=== PATIENT | female | born 1945 | race Caucasian/White ===

== ENCOUNTER 2023-01-10 08:08 | Emergency (ER) | payer MEDICARE ==
[~2023-01-10] VITALS: Ht 170.2 cm; Wt 74.5 kg
[2023-01-10 08:40] LABS: ALANINE AMINOTRANSFERASE 18 U/L (12-78); ALBUMIN 3.5 G/DL (3.4-5.0); ALBUMIN/GLOBULIN RATIO 1.2 (1.1-1.5); ANION GAP 9 (8-16); ASPARTATE AMINO TRANSFERASE 30 U/L (10-37); BILIRUBIN,TOTAL 0.4 MG/DL (0.1-1.0); BLOOD UREA NITROGEN 9 MG/DL (7-18); BUN/CREATININE RATIO 10.5 (10.0-20.0); CALCIUM 9.2 MG/DL (8.5-10.1); CHLORIDE 108 MMOL/L (99-107); CREATININE 0.86 MG/DL (0.40-0.90); GLUCOSE 95 MG/DL (70-104); POTASSIUM 4.1 MMOL/L (3.5-5.1); SODIUM 144 MMOL/L (135-145); TOTAL CARBON DIOXIDE 27.1 MMOL/L (24-32); TOTAL PROTEIN 6.4 G/DL (6.4-8.2); eGFR 63 ML/MIN
[2023-01-10 08:41] LABS: ALKALINE PHOSPHATASE 110 IU/L (46-116); BASOPHILS % (AUTO) 0.6 % (0-1); EOSINOPHILS # (AUTO) 0.1 X10'3 (0-0.9); EOSINOPHILS % (AUTO) 1.9 % (0-6); HEMATOCRIT 39.5 % (35.0-45.0); HEMOGLOBIN 12.7 g/dl (12.0-16.0); LYMPHOCYTES # (AUTO) 2.3 X10'3 (1.1-4.8); LYMPHOCYTES % (AUTO) 40.2 % (21-51); MEAN CORPUSCULAR HEMOGLOBIN 29.5 PG (27.0-31.0); MEAN CORPUSCULAR HGB CONC 32.3 g/dL (33.0-36.5); MEAN CORPUSCULAR VOLUME 91.5 FL (78-98); MEAN PLATELET VOLUME 7.7 FL (7.4-10.4); MONOCYTES # (AUTO) 0.3 X10'3 (0-0.9); MONOCYTES % (AUTO) 5.2 % (2-12); NEUTROPHILS % (AUTO) 52.1 % (42-75); PLATELET COUNT 308 X10'3 (140-440); RED BLOOD COUNT 4.32 X10'6 (4.20-5.60); RED CELL DISTRIBUTION WIDTH 14.9 % (11.5-14.5); WHITE BLOOD COUNT 5.8 X10'3 (4.5-11.0)
[2023-01-10 10:29] VITALS: BP 146/73
[2023-01-10] MEDS ORDERED: HYDROcodone/acetaminophen 5mg/325mg tablet PO ONE (12:15)
--- NOTE | 2023-01-10 13:33 | NUR ---
PER DR VALENTINE RN MAY CHG NOWATA TO NOWATA.
[2023-01-10] MEDS ORDERED: HYDROcodone/acetaminophen 10/325mg tab PO ONE (13:35)
[2023-01-10] MEDS ORDERED: HYDR-3973 PO (13:50)
== END 2023-01-11 06:57 | disposition home or self-care (01) ==
LOC: ER 08:09
DX: G89.29 Other chronic pain (principal); M54.50 Low back pain, unspecified; J44.9 Chronic obstructive pulmonary disease, unspecified; Z79.1 Long term (current) use of non-steroidal anti-inflammatories (NSAID)
CPT/HCPCS: 36415; 71045; 80053; 83880; 84484; 85025; 93005; 99285

== ENCOUNTER 2023-01-18 12:27 | Emergency (ER) | payer MEDICARE, OTHER ==
[~2023-01-18] VITALS: Ht 167.6 cm; Wt 64.4 kg
[~2023-01-18 12:27] MED LIST: HYDR-3973 PO
[2023-01-18 12:37] VITALS: TEMP 97.7
[2023-01-18 12:43] LABS: BASOPHILS # (AUTO) 0.1 X10'3 (0-0.2); BASOPHILS % (AUTO) 0.9 % (0-1); EOSINOPHILS # (AUTO) 0.1 X10'3 (0-0.9); EOSINOPHILS % (AUTO) 1.2 % (0-6); HEMOGLOBIN 13.1 g/dl (12.0-16.0); LYMPHOCYTES # (AUTO) 2.1 X10'3 (1.1-4.8); MEAN CORPUSCULAR HEMOGLOBIN 29.7 PG (27.0-31.0); MEAN CORPUSCULAR HGB CONC 32.7 g/dL (33.0-36.5); MEAN CORPUSCULAR VOLUME 90.9 FL (78-98); MEAN PLATELET VOLUME 7.7 FL (7.4-10.4); MONOCYTES # (AUTO) 0.3 X10'3 (0-0.9); MONOCYTES % (AUTO) 5.1 % (2-12); NEUTROPHILS # (AUTO) 3.9 X10'3 (1.8-7.7); NEUTROPHILS % (AUTO) 60.8 % (42-75); PLATELET COUNT 296 X10'3 (140-440); RED CELL DISTRIBUTION WIDTH 14.8 % (11.5-14.5); WHITE BLOOD COUNT 6.5 X10'3 (4.5-11.0)
[2023-01-18 13:12] LABS: ALANINE AMINOTRANSFERASE 14 U/L (12-78); ALBUMIN 3.9 G/DL (3.4-5.0); ALBUMIN/GLOBULIN RATIO 1.5 (1.1-1.5); ALKALINE PHOSPHATASE 99 IU/L (46-116); ANION GAP 11 (8-16); ASPARTATE AMINO TRANSFERASE 19 U/L (10-37); BILIRUBIN,TOTAL 0.6 MG/DL (0.1-1.0); BLOOD UREA NITROGEN 12 MG/DL (7-18); BUN/CREATININE RATIO 15.6 (10.0-20.0); CALCIUM 9.3 MG/DL (8.5-10.1); CHLORIDE 108 MMOL/L (99-107); CREATININE 0.77 MG/DL (0.40-0.90); GLUCOSE 100 MG/DL (70-104); POTASSIUM 3.8 MMOL/L (3.5-5.1); SODIUM 143 MMOL/L (135-145); TOTAL PROTEIN 6.5 G/DL (6.4-8.2); eGFR 72 ML/MIN
[2023-01-18] MEDS ORDERED: HYDROcodone/acetaminophen 10/325mg tab PO STA (14:40)
[2023-01-18 14:52] VITALS: BP 147/74; PULSE 68; RESP 20; O2SAT 98
[2023-01-18] MEDS ORDERED: HYDR-3973 PO (15:35)
== END 2023-01-18 15:49 | disposition home or self-care (01) ==
LOC: ER 12:28
DX: M54.50 Low back pain, unspecified (principal); Z76.0 Encounter for issue of repeat prescription; J44.9 Chronic obstructive pulmonary disease, unspecified; Z79.899 Other long term (current) drug therapy
CPT/HCPCS: 36415; 71045; 80053; 83880; 84484; 85025; 93005; 99285

== ENCOUNTER 2023-04-24 15:45 | Emergency (ER) | payer MEDICARE, OTHER ==
[~2023-04-24] VITALS: Ht 170.2 cm; Wt 67.7 kg
[2023-04-24 15:57] VITALS: TEMP 98.3
[2023-04-24 16:22] LABS: BASOPHILS % (AUTO) 0.5 % (0-1); EOSINOPHILS # (AUTO) 0.1 X10'3 (0-0.9); EOSINOPHILS % (AUTO) 0.5 % (0-6); HEMATOCRIT 32.8 % (35.0-45.0); HEMOGLOBIN 10.9 g/dl (12.0-16.0); LYMPHOCYTES # (AUTO) 3.6 X10'3 (1.1-4.8); LYMPHOCYTES % (AUTO) 37.2 % (21-51); MEAN CORPUSCULAR HEMOGLOBIN 30.2 PG (27.0-31.0); MEAN CORPUSCULAR HGB CONC 33.4 g/dL (33.0-36.5); MEAN CORPUSCULAR VOLUME 90.6 FL (78-98); MEAN PLATELET VOLUME 8.1 FL (7.4-10.4); MONOCYTES # (AUTO) 0.4 X10'3 (0-0.9); MONOCYTES % (AUTO) 3.7 % (2-12); NEUTROPHILS # (AUTO) 5.6 X10'3 (1.8-7.7); NEUTROPHILS % (AUTO) 58.1 % (42-75); PLATELET COUNT 289 X10'3 (140-440); RED BLOOD COUNT 3.62 X10'6 (4.20-5.60); RED CELL DISTRIBUTION WIDTH 13.9 % (11.5-14.5); WHITE BLOOD COUNT 9.7 X10'3 (4.5-11.0)
[2023-04-24 16:28] LABS: ALANINE AMINOTRANSFERASE 16 U/L (12-78); ALBUMIN 3.4 G/DL (3.4-5.0); ALKALINE PHOSPHATASE 90 IU/L (46-116); ANION GAP 9 (8-16); ASPARTATE AMINO TRANSFERASE 19 U/L (10-37); BILIRUBIN,TOTAL 0.3 MG/DL (0.1-1.0); BLOOD UREA NITROGEN 26 MG/DL (7-18); BUN/CREATININE RATIO 29.5 (10.0-20.0); CALCIUM 9.5 MG/DL (8.5-10.1); CHLORIDE 106 MMOL/L (99-107); CREATININE 0.88 MG/DL (0.40-0.90); GLUCOSE 93 MG/DL (70-104); POTASSIUM 3.5 MMOL/L (3.5-5.1); SODIUM 142 MMOL/L (135-145); TOTAL CARBON DIOXIDE 26.6 MMOL/L (24-32); TOTAL PROTEIN 6.9 G/DL (6.4-8.2); eCRCL 50 ML/MIN; eGFR 62 ML/MIN
[2023-04-24 16:37] LABS: PRO BRAIN NATRIURETIC PEPTIDE 111 PG/ML (0-450)
[2023-04-24] MEDS ORDERED: morphine 2 MG/ML inj. syringe IV ONE (17:20)
[2023-04-24] MEDS ORDERED: ondansetron 4mg rapidly disintigrating tab PO ONE (17:20)
[2023-04-24] MEDS ORDERED: morphine 10 MG/5 ML UD oral solution PO ONE (18:20)
[2023-04-24] MEDS ORDERED: HYDR-3964 PO (18:35)
[2023-04-24] MEDS ORDERED: HYDROCO (18:35)
[2023-04-24 18:57] VITALS: BP 149/85; PULSE 94; RESP 16; O2SAT 94
== END 2023-04-24 18:59 | disposition home or self-care (01) ==
LOC: ER 15:46
DX: M54.6 Pain in thoracic spine (principal); R06.02 Shortness of breath; W19.XXXA Unspecified fall, initial encounter; Y93.89 Activity, other specified; Y92.89 Other specified places as the place of occurrence of the external cause; Y99.8 Other external cause status
CPT/HCPCS: 36415; 71250; 80053; 83880; 84484; 85025; 93005; 96374; 99285; J2270

== ENCOUNTER 2024-04-19 08:28 | Outpatient (CLI) | payer MEDICARE, OTHER ==
[~2024-04-19 08:28] MED LIST changes: -HYDR-3973 PO; +HYDROCO
== END 2024-04-19 23:59 | disposition home or self-care (01) ==
LOC: US 08:28
PROVIDERS: ATTEND Nurse Practitioner Family
DX: R35.1 Nocturia (principal)
CPT/HCPCS: 76770

== ENCOUNTER 2024-09-16 22:47 | Emergency (ER) | payer MEDICARE, OTHER ==
[~2024-09-16] VITALS: Ht 170.2 cm; Wt 55.0 kg
[2024-09-16 23:37] LABS: BASOPHILS % (AUTO) 0.8 % (0-1); EOSINOPHILS # (AUTO) 0.1 X10'3 (0-0.9); EOSINOPHILS % (AUTO) 2.2 % (0-6); HEMATOCRIT 23.5 % (35.0-45.0); HEMOGLOBIN 7.4 g/dl (12.0-16.0); LYMPHOCYTES % (AUTO) 41.7 % (21-51); MEAN CORPUSCULAR HEMOGLOBIN 26.4 PG (27.0-31.0); MEAN CORPUSCULAR HGB CONC 31.7 g/dL (33.0-36.5); MEAN CORPUSCULAR VOLUME 83.1 FL (78-98); MEAN PLATELET VOLUME 7.6 FL (7.4-10.4); MONOCYTES # (AUTO) 0.3 X10'3 (0-0.9); MONOCYTES % (AUTO) 5.9 % (2-12); NEUTROPHILS # (AUTO) 2.3 X10'3 (1.8-7.7); NEUTROPHILS % (AUTO) 49.4 % (42-75); PLATELET COUNT 221 X10'3 (140-440); RED BLOOD COUNT 2.83 X10'6 (4.20-5.60); RED CELL DISTRIBUTION WIDTH 18.6 % (11.5-14.5); WHITE BLOOD COUNT 4.7 X10'3 (4.5-11.0)
[2024-09-16 23:52] LABS: INR 1.2 INR; PROTHROMBIN TIME 12.2 SECONDS (9.0-12.0)
[2024-09-16 23:53] LABS: APTT 20 SECONDS (22-32)
[2024-09-17 00:15] LABS: ANISOCYTOSIS 1+; POIKILOCYTOSIS 2+
[2024-09-17 00:19] LABS: ALANINE AMINOTRANSFERASE 13 U/L (12-78); ALBUMIN 2.7 G/DL (3.4-5.0); ALBUMIN/GLOBULIN RATIO 1.2 (1.1-1.5); ALKALINE PHOSPHATASE 88 IU/L (46-116); ANION GAP 7 (8-16); ASPARTATE AMINO TRANSFERASE 28 U/L (10-37); BILIRUBIN,TOTAL 0.3 MG/DL (0.1-1.0); BLOOD UREA NITROGEN 16 MG/DL (7-18); BUN/CREATININE RATIO 18.4 (10.0-20.0); CALCIUM 7.8 MG/DL (8.5-10.1); CHLORIDE 109 MMOL/L (99-107); CREATININE 0.87 MG/DL (0.40-0.90); GLUCOSE 84 MG/DL (70-104); PRO BRAIN NATRIURETIC PEPTIDE 764 PG/ML (0-450); SODIUM 144 MMOL/L (135-145); TOTAL CARBON DIOXIDE 28.1 MMOL/L (24-32); eCRCL 44 ML/MIN; eGFR 62 ML/MIN
[2024-09-17 00:26] LABS: ETHANOL < 10 MG/DL (<10)
[2024-09-17 00:27] LABS: POTASSIUM 2.9 MMOL/L (3.5-5.1)
[2024-09-17 00:52] LABS: BILIRUBIN,URINE NEGATIVE (Neg); CLARITY,URINE CLEAR (Clear); COLOR,URINE YELLOW (Yellow); GLUCOSE, URINE NEGATIVE (Neg); KETONES,URINE NEGATIVE (Neg); LEUKOCYTE ESTERASE ,URINE NEGATIVE (Neg); NITRITES, URINE NEGATIVE (Neg); OCCULT BLOOD,URINE NEGATIVE (Neg); PROTEIN,URINE NEGATIVE (Neg)
[2024-09-17 01:08] LABS: UA COLLECTION TYPE CLN CATCH MIDSTREAM
[2024-09-17 01:21] LABS: URINE AMPHETAMINE SCREEN NEGATIVE (Neg); URINE BARBITUATE SCREEN NEGATIVE (Neg); URINE BENZODIAZEPINES SCREEN NEGATIVE (Neg); URINE CANNABINOID SCREEN POSITIVE (Neg); URINE COCAINE SCREEN NEGATIVE (Neg); URINE METHADONE SCREEN NEGATIVE (Neg); URINE OPIATE SCREEN POSITIVE (Neg); URINE PHENCYCLIDINE SCREEN NEGATIVE (Neg)
[2024-09-17] MEDS: POTASSIUM CHLORIDE 20 MEQ/15 ML oral solution PO SCH (01:40)
[2024-09-17] MEDS: HYDROcodone/acetaminophen 10/325mg tab PO ONE (02:04)
[2024-09-17 02:46] VITALS: BP 122/68; PULSE 66; RESP 18; TEMP 98.5; O2SAT 98
== END 2024-09-17 03:01 | disposition home or self-care (01) ==
LOC: ER 22:47
DX: S09.8XXA Other specified injuries of head, initial encounter (principal); G89.11 Acute pain due to trauma; D64.9 Anemia, unspecified; J44.9 Chronic obstructive pulmonary disease, unspecified; I10 Essential (primary) hypertension; G89.29 Other chronic pain; M54.9 Dorsalgia, unspecified; W18.30XA Fall on same level, unspecified, initial encounter; Y93.89 Activity, other specified; Y92.89 Other specified places as the place of occurrence of the external cause; Y99.8 Other external cause status
CPT/HCPCS: 36415; 70450; 80053; 80305; 81003; 83735; 83880; 84484; 85008; 85025; 85610; 85730; 93005; 99284; G0480; 80320

== ENCOUNTER 2025-04-06 10:39 | Inpatient (IN) | payer MEDICARE, OTHER ==
[~2025-04-06] VITALS: Ht 170.2 cm; Wt 53.1 kg
--- NOTE | 2025-04-06 11:04 | ELECTROCARDIOGRAPH REPORT ---
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
--- NOTE | 2025-04-06 11:22 | Physician Documentation ---
History of Present Illness General Chief Complaint: Abdominal Pain Stated Complaint: ABD PAIN Time Seen by MD: 11:21 Primary Medical Doctor: [place] History of Present Illness Initial Comments Patient is a an 80-year-old female presents to the emergency room with abdominal pain and diarrhea. The patient states that she has had abdominal pain for the last two days and decreased appetite over the last two days. Patient states that she developed an episode of diarrhea this morning. The patient states her pain is in the lower abdomen. She denies any fevers or chills. Patient states she has a history of back pain. Patient states she takes for Thornton 03/30/2025 pills a day for her chronic back pain. Patient denies any fevers she advised denies any nausea or vomiting patient's symptoms are moderate and persistent. Patient has had a cholecystectomy and a hysterectomy in the past. Medication Reconciliation Allergies: Coded Allergies: No Known Allergies (Unverified , 04/06/25) Scheduled Albuterol Sulfate Nebs* (Proventil Nebs*), 1 VIAL NEB Q4H, (Reported) Duloxetine HCl (Duloxetine HCl), 1 CAP PO DAILY, (Reported) Ferrous Sulfate* (Ferrous Sulfate*), 1 TAB PO DAILY, (Reported) Olmesartan Medoxomil (Olmesartan Medoxomil), 1 TAB PO DAILY, (Reported) Scheduled PRN Cyclobenzaprine HCl (Cyclobenzaprine HCl), 1 TAB PO HS PRN for pain, (Reported) Hydrocodone Bit/Acetaminophen (Hydrocodon-Acetaminophn 10-325 tablet), 1 TAB PO QID PRN for pain, (Reported) Trazodone HCl (Trazodone HCl), 2 TAB PO HS PRN for sleep, (Reported) Miscellaneous Medications Estradiol (Estradiol), (Reported) [hydroco] Past Medical History Past Medical History: Hypertension, COPD, Anemia, Chronic Pain, Chronic Back Pain Past Surgical History: noncontributory Alcohol Use: None Drug Use: none Lives with: Spouse Lives In: Home Occupation: retired Review of Systems All Other Systems at this time: Reviewed and Negative Physical Exam Physical Exam Vital Signs: Temperature: 97.5, Source: Temporal, Heart Rate: 98, Respiratory Rate: 20, BP: 184/97, Pulse Oximetry: 100, Weight: 53.100 Oxygen Flow Rate: 0 Physical Exam VITALS: Reviewed and as above. GENERAL: Alert, no apparent distress. HEENT: Normocephalic, atraumatic, PERRL, EOMI, dry mucosa, no erythema RESPIRATORY: Lungs clear, normal breath sounds, no respiratory distress. CHEST: No accessory muscle use, no retractions CV: Regular rate, rhythm, no edema, no murmur, No: JVD GI: Soft, lower abdominal tenderness diffuse greater on the right lower quadrant, bowels sounds present, no rebound, guarding, or rigidity BACK: No CVA tenderness, or swelling MUSCULOSKELETAL: No deformities, no edema SKIN: Warm and dry, no rash NEURO: Oriented x4, No motor or sensory deficit PSYCH: Normal mood and affect, no agitation Progress Results/Orders Results/Orders Orders - OHLJARON JIANG MD Ct Abdomen Pelvis (04/06/25 13:00) Page Hospitalist (04/06/25 15:35) Fill Out Med Reconciliation (04/06/25 15:35) Completed Orders - JARON CUEVA MD Procalcitonin (04/06/25 11:22) Ondansetron Inj. (Zofran 4mg/2ml Vial) (04/06/25 11:40) Morphine 10mg/Ml Inj. (Morphine Inj.) (04/06/25 11:40) Normal Saline 1000ml (0.9% Sodium Chlori (04/06/25 11:40) Ct Abdomen Pelvis (04/06/25 13:00) Oxycodone/Acetaminophen Tablet (Percocet (04/06/25 12:15) Iohexol 300mg/Ml 100ml Inj. (Omnipaque-3 (04/06/25 12:48) Hydromorphone 1 Mg/Ml/Pf (Dilaudid Inj.) (04/06/25 14:50) Piperacillin/Tazo 3.375gm/50ml (Zosyn 3. (04/06/25 14:50) Vital Signs 04/06/25 04/06/25 04/06/25 04/06/25 10:51 11:15 12:17 13:28 Temp 97.5 Pulse 98 72 Resp 20 20 16 13 B/P (MAP) 184/97 149/72 (97) Pulse Ox 100 95 O2 Flow Rate 0 04/06/25 04/06/25 14:58 15:10 Pulse 72 Resp 16 16 B/P (MAP) 163/72 (102) Pulse Ox 97 Laboratory Tests Test 04/06/25 11:56 04/06/25 14:12 White Blood Count 6.8 Red Blood Count 4.03 L Hemoglobin 11.1 L Hematocrit 34.5 L Mean Corpuscular Volume 85.6 Mean Corpuscular Hemoglobin 27.6 Mean Corpuscular Hemoglobin Concent 32.3 L Red Cell Distribution Width 19.6 H Platelet Count 445 H Mean Platelet Volume 6.9 L Neutrophils (%) (Auto) 71.7 Lymphocytes (%) (Auto) 24.0 Monocytes (%) (Auto) 3.3 Eosinophils (%) (Auto) 0.4 Basophils (%) (Auto) 0.6 Neutrophils # (Auto) 4.9 Lymphocytes # (Auto) 1.6 Monocytes # (Auto) 0.2 Eosinophils # (Auto) 0.0 Basophils # (Auto) 0.0 CBC Comment Platelet Estimate Increased Red Blood Cell Morphology Perf Basophilic Stippling Anisocytosis 2+ Saline Cells Few Acanthocytes Few Sodium Level 142 Potassium Level 3.4 L Chloride Level 105 Carbon Dioxide Level 30.9 Anion Gap 6 L Blood Urea Nitrogen 16 Creatinine 0.81 Estimated GFR/1.73 m2 68 BUN/Creatinine Ratio 19.8 Glucose Level 106 H Calcium Level 8.1 L Troponin I High Sensitivity 14 16 Albumin 2.4 L Procalcitonin 0.06 Chemistry Comments Troponin I High Sens Percent Delta 14 Troponin I Hi Sens Absolute Change 2 EKG/XRAY/CT/US/VASC/MRI Chest X-Ray : Additional Comments Patient: JAE TSAI Medical Record: [id number] : 1945, Age: 80 Sex: Female Location: ER Patient Status: REG ER Service Date/Time: 04/06/251099 Ordering Physician: JEFFREY MACIAS PRODUCT MARKETING COORDINATOR Exam: CHEST,SINGLE VIEW EXAM: DI CHEST,SINGLE VIEW Indication: SOB Technique: Single frontal view of the chest was obtained Comparison: CT CT CHEST on DOS: 04/24/23, CHEST,SINGLE VIEW on DOS: 01/18/23, CHEST,SINGLE VIEW on DOS: 01/10/23 FINDINGS: Lines and Tubes: None Lungs: Trace right pleural effusion. No pneumothorax. Cardiomediastinal contours: Unremarkable Bones: No acute osseous abnormality. IMPRESSION: Trace right pleural effusion. Electronically Signed by:SHELLY LUNA MD Date & Time: 04/06/251126 Dictated by: SHELLY LUNA MD Dictation date and time: 04/06/251126 Primary Care Provider: NO PRIMARY CARE PROVIDER cc: JEFFREY MACIAS PRODUCT MARKETING COORDINATOR ~ CT : Impression Patient: JAE TSAI Medical Record: [id number] [facility] : 1945, Age: 80 Sex: Female Location: ER Patient Status: REG ER Service Date/Time: 04/06/251299 Ordering Physician: JARON CUEVA MD Exam: CT ABDOMEN PELVIS Indication: abdominal pain Technique: CT axial images of the abdomen and pelvis are obtained with intravenous contrast. Coronal and sagittal reformats were obtained. Radiation Dose Information: CTDI volume is 10 mGy. Dose-length product is 468 mGy*cm Comparison: None FINDINGS: Lung bases demonstrate tiny bilateral pleural effusions. Adrenal glands, spleen unremarkable. Pancreatic parenchymal atrophy. Severe hepatic steatosis. Hepatomegaly. Gallbladder not well visualized. Kidneys demonstrate no hydronephrosis. Small to moderate hiatal hernia. Postsurgical changes stomach/gastric bypass. Small bowel loops normal in caliber. Colonic mucosal hyperemia, wall edema / thickening. Appendix not well characterized. Mesenteric edema. Small amount of ascites fluid. Abdominal aortic atherosclerotic disease and tortuosity. Bladder partially distended left lateral bladder wall diverticulum measuring 3 cm. Soft tissue edema/anasarca. Postsurgical changes right inguinal canal region. Rxxy-gb-ttdsivon bilateral sacroiliac degenerative joint disease. Severe lumbar degenerative disc disease. IMPRESSION: Diffuse colonic mucosal hyperemia, wall edema / thickening. Correlate for coli tis, inflammatory bowel disease. Anasarca/ soft tissue edema. Diffuse mesenteric edema. Small amount of ascites fluid. Severe hepatic steatosis. Atherosclerotic disease. Postsurgical changes stomach. Hiatal hernia. Other findings as described. Electronically Signed by:OZIEL MERCEDES MD Date & Time: 04/06/25 1406 Dictated by: OZIEL MERCEDES MD Dictation date and time: 04/06/25 1300 Primary Care Provider: YOUNG PRIMARY CARE PROVIDER cc: JARON CUEVA MD ~ Medical Decision Making Findings Patient is a 80-year-old female takes chronic Thornton for back pain who presents to the emergency room with significant abdominal pain lower abdominal pain and some tenderness on exam she had no peritoneal signs her CT showed likely diffuse colitis probably of viral etiology given the patient's diarrhea and low white blood cell count patient was covered with a dose of Zosyn, the patient is in a moderate amount of pain in uncomfortable so she will be admitted to the hospitalist for further management. The patient's prior hospitalizations have been reviewed patient's pulse oximetry was interpreted as normal and adequate her CT images all were reviewed and as well as the radiologist's interpretation. Prior hospitalizations has been reviewed Departure Admitted to Inpatient Unit: yes, to hospitalist Impression: Primary Impression: Abdominal pain Qualified Codes: R10.84 - Generalized abdominal pain Additional Impression: Colitis Referrals: NO PRIMARY CARE PROVIDER (PCP) Signature Scribe Signature: no Attestation: The note accurately reflects work and decisions made by me.Jaron Cueva MD 04/07/25 12:16 JARON CUEVA MD Apr 06, 2025 11:21
--- NOTE | 2025-04-06 11:29 | RADIOLOGY REPORT ---
EXAM: DI CHEST,SINGLE VIEW Indication: SOB Technique: Single frontal view of the chest was obtained Comparison: CT CT CHEST on DOS: 04/24/23, CHEST,SINGLE VIEW on DOS: 01/18/23, CHEST,SINGLE VIEW on DOS: 01/10/23 FINDINGS: Lines and Tubes: None Lungs: Trace right pleural effusion. No pneumothorax. Cardiomediastinal contours: Unremarkable Bones: No acute osseous abnormality. IMPRESSION: Trace right pleural effusion.
[2025-04-06 12:09] LABS: MEAN PLATELET VOLUME 6.9 FL (7.4-10.4); RED CELL DISTRIBUTION WIDTH 19.6 % (11.5-14.5)
[2025-04-06] MEDS: normal saline 1000ML IV soln IVB ONE (12:17)
[2025-04-06] MEDS: morphine 10mg/ml inj. IV ONE (12:17)
[2025-04-06] MEDS: ondansetron/PF 4mg/2ml inj IV ONE (12:17)
[2025-04-06 12:22] LABS: CREATININE 0.81 MG/DL (0.40-0.90); TOTAL CARBON DIOXIDE 30.9 MMOL/L (24-32); eCRCL 45 ML/MIN; eGFR 68 ML/MIN
[2025-04-06] MEDS ORDERED: iohexol 300mg/ml 100ml inj. ONE (12:48)
[2025-04-06 12:52] LABS: PLATELET ESTIMATE INCREASED
--- NOTE | 2025-04-06 14:04 | RADIOLOGY REPORT ---
Indication: abdominal pain Technique: CT axial images of the abdomen and pelvis are obtained with intravenous contrast. Coronal and sagittal reformats were obtained. Radiation Dose Information: CTDI volume is 10 mGy. Dose-length product is 468 mGy*cm Comparison: None FINDINGS: Lung bases demonstrate tiny bilateral pleural effusions. Adrenal glands, spleen unremarkable. Pancreatic parenchymal atrophy. Severe hepatic steatosis. Hepatomegaly. Gallbladder not well visualized. Kidneys demonstrate no hydronephrosis. Small to moderate hiatal hernia. Postsurgical changes stomach/gastric bypass. Small bowel loops normal in caliber. Colonic mucosal hyperemia, wall edema / thickening. Appendix not well characterized. Mesenteric edema. Small amount of ascites fluid. Abdominal aortic atherosclerotic disease and tortuosity. Bladder partially distended left lateral bladder wall diverticulum measuring 3 cm. Soft tissue edema/anasarca. Postsurgical changes right inguinal canal region. Jgka-fn-saslugbr bilateral sacroiliac degenerative joint disease. Severe lumbar degenerative disc disease. IMPRESSION: Diffuse colonic mucosal hyperemia, wall edema / thickening. Correlate for colitis, inflammatory bowel disease. Anasarca/ soft tissue edema. Diffuse mesenteric edema. Small amount of ascites fluid. Severe hepatic steatosis. Atherosclerotic disease. Postsurgical changes stomach. Hiatal hernia. Other findings as described.
[2025-04-06] MEDS: piperacillin/tazo 3.375gm/50ml 50 ML IV ONE (14:58)
[2025-04-06] MEDS ORDERED: magnesium sulf-water 2g/50mL 50 ML IV PRN (17:15)
[2025-04-06] MEDS ORDERED: magnesium Cl slow-release 64mg tablet PO PRN (17:15)
[2025-04-06] MEDS ORDERED: mag hydrox/Alum hydrox/simeth 30ml oral suspension PO PRN (17:15)
[2025-04-06] MEDS ORDERED: potassium Cl 40MEQ/1/2NS 520ml 520 ML IV PRN (17:15)
[2025-04-06] MEDS ORDERED: morphine 4 MG/ML inj SYRINge IV PRN (17:15)
[2025-04-06] MEDS ORDERED: potassium Cl 20 mEq SR tablet PO PRN (17:15)
[2025-04-06] MEDS ORDERED: magnesium hydroxide 30ml (MOM) UD suspension PO PRN (17:15)
[2025-04-06] MEDS ORDERED: HYDROmorphone inj. 0.5 MG/0.5 ML DISP.SYRIN IV PRN (17:15)
[2025-04-06] MEDS ORDERED: ondansetron/PF 4mg/2ml inj IV PRN (17:15)
[2025-04-06] MEDS ORDERED: magnesium sulf-water 4G/100mL 100 ML IV PRN (17:15)
--- NOTE | 2025-04-06 17:39 | HISTORY AND PHYSICAL-Residence ---
History & Physical Providers to CC Resident Creating Document: ANABEL BUTTS, RES CC: DUARTE SANDOVAL MD ~ History of Present Illness Primary Medical Doctor: [place] Reason for Admit\Complaint: Intractable abdominal pain History of Present Illness This is a 80-year-old female patient with past medical history of hypertension, hypothyroidism, hyperlipidemia with a controlled pain control stimulator placed intradermally in her back, patient presented to the ED with complaints of abdominal pain located right lower quadrant and radiating to right hypogastric region as well; patient rated the pain a 7-8/10. She described the pain as squeezing type of pain which decreases slightly positional changes. Patient also complained of 3-5 episodes of loose watery stools for the last two days. Patient says that she had one episode of fever but did not record her temperature. 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 Patient's primary care doctor [facility] Patient lives with her in her house Normally ambulates on her own and uses a cane occasionally when she has to walk long distances Allergies: Coded Allergies: No Known Allergies (Unverified , 04/06/25) Home Medications Home Medications Active [hydroco] Past Medical History Past Medical History Hypertension Hyperlipidemia, Hypothyroidism Past Surgical History Surgical History Comment Cholecystectomy Hysterectomy B/L cataract surgery History of bariatric surgery Past Social History Social History Comment Patient used to be a smoker 30 years ago she used to smoke half pack of cigarettes a day Patient drinks occasionally Denied any other illicit drug abuse Alcohol Use: None Drug Use: None Lives with: Spouse Lives In: Home Occupation: retired ROS All Other Systems: Reviewed and Negative ROS Constitutional: No fever, dizziness, weakness, decrease in appetite HEENT: Normal vision. No sore throat, epistaxis, tinnitus Cardiovascular: No chest pain/discomfort, palpitations, syncope. no pedal edema Respiratory: No sob, cough,hemoptysis Gastrointestinal: abdominal pain, no nausea, no vomiting. diarrhea noted,no melena. Genitourinary: No frquency, urgency, incontinence, nocturia. No dysuria, hematuria Musculoskeletal: Normal, no pains Endocrine: No fatigue, polydipsia, polyuria. No heat or cold intolerance Neurologic: No headache, vertigo. No weakness, numbness or tingling of extremities Psychiatric: No hallucinations/delusions, no anhedonia, no suicidal ideation Hematologic: No bruises Exam Vitals: Vital Signs Date Time Temp Pulse Resp B/P (MAP) Pulse Ox O2 Delivery O2 Flow Rate FiO2 04/06/25 14:58 16 04/06/25 13:28 72 149/72 (97) 95 04/06/25 10:51 97.5 0 General: General: Awake, oriented to person, place and time; extremely pale and extremely malnourished woman HEENT: Conjunctive are aple, sclerae clear, no icterus, pupil is equal in both sides, reactive to light, no ear discharge, no pharyngeal erythema or an edema. Neck: Supple, no JVD, no lymphadenopathy and thyromegaly. Chest: Equal air entry on both lungs, no additional sounds no rhonchi no wheezing at the moment. Cardiovascular: S1-S2 regular sounds heard but overshadowed by the ejection systolic murmur sinus rhythm; ejection systolic murmur grade 3/6 heard all over the precordium Abdomen: No visible peristalsis, Bowel sounds present on auscultation, soft, mild tenderness present in the right lower quadrant, no guarding, no rigidity; abdominal scar present post hysterectomy Extremities: No obvious deformities, 1+ pitting edema bilaterally, capillary refill intact, peripheral pulsations are intact on both sides Central Nervous System: No focal neurological deficits, no motor or sensory weakness in all 4 extremities, could move all 4 extremities, 2+ deep tendon reflexes, negative Babinski. Musculoskeletal: No joint swelling, deformities, inflammations, and no scoliosis and back tenderness Skin: Warm and dry. Dry oral mucosa. Psychiatric: Mood and thoughts appropriate Diagnostic Data Last Recorded Lab Results: 04/06/25 1156 04/06/25 1156 Advance Care Planning Advanced Care plannin - 30 Minutes (Spoke with the patient in detail about the code status and patient decided she wanted to be a full code) Additional Plan Intractable abdominal pain 2/2 gastroenteritis possibly bacterial cause Presents of intractable right lower quadrant; 3-5 episodes of diarrhea Normal WBC count, procalcitonin normal CT abdomen reported Diffuse colonic mucosal hyperemia, wall edema/thickening Patient received 1 L bolus of normal saline in the ER; received one dose of Zosyn Plan Initiated patient on normal saline 75 mL/hour Ordered C diff toxin Ordered stool culture, fecal fat Initiated the patient on antibiotics metronidazole IV and ciprofloxacin IV q.12h Intractable low chronic back pain H/o degenerative osteoarthritis changes Patient has a pain controlled stimulator intradermally Pain meds Dilaudid 0.5 mg IV q.4h p.r.n.; morphine 4 mg q.4h p.r.n.; [place] 5 mg q.4h p.r.n. Hypertension History of hypertension Initiated the patient on amlodipine 5 mg p.o. Awaiting med rec Hypothyroidism Order TSH Waiting med rec Severe hepatic steatosis CT abdomen showed severe hepatic steatosis Liver function tests pending Severe malnutrition Patient has a BMI of 18.3 Ordered ensure enlive t.i.d. Nutrition consult in place Code Status: Full code DVT Prophylaxis: Heparin Lines/Tubes: PIV Nutrition: 2g sodium restricted diet PT: yes Prognosis: Guarded Disposition: We will continue to monitor the patient; follow up with the echo; follow up with stool cultures. Med rec pending Anabel Butts MD Internal medicine resident,[id number] Date of Service: Apr 06, 2025 Billing Provider: DUARTE SANDOVAL MD Common Visit Codes: 18639-KFHLSYY INP/OBS CARE (HIGH) Secondary Visit Codes: 85718-[id number] CARE PLAN 30 MINUTES ANABEL BUTTS, RES Apr 06, 2025 17:39 DUARTE SANDOVAL MD Apr 09, 2025 16:24
[2025-04-06] MEDS: PERFLUTREN PROTEIN-A MICROSPHR (Optison) 0.22 MG/ML 3ML VIAL IV ONE (17:44)
[2025-04-06] MEDS: lactose-reduced food (Ensure Enlive) - 237ml bottle PO SCH (18:00)
[2025-04-06] MEDS: normal saline 1000ml 1,000 ML IV SCH (18:04)
[2025-04-06 18:45] LABS: APTT 27 SECONDS (22-32); INR 1.2 INR
[2025-04-06 18:55] LABS: CHOL/HDL RATIO 2.3 (0.00-4.99); LDL CHOLESTEROL 46 MG/DL (50-100); PHOSPHORUS 2.5 MG/DL (2.3-4.5); PRO BRAIN NATRIURETIC PEPTIDE 828 PG/ML (0-450)
[2025-04-06] MEDS: K and/or MAG REPLACEMENT MC SCH (20:00)
[2025-04-06] MEDS ORDERED: docusate sod 100mg capsule PO SCH (20:00)
[2025-04-06] MEDS ORDERED: OLME5TAB29 PO (20:05)
[2025-04-06] MEDS ORDERED: HYDR-3972 PO (20:05)
[2025-04-06] MEDS ORDERED: TRAZ-256 PO (20:05)
[2025-04-06] MEDS ORDERED: ESTR0.5T28 (20:05)
[2025-04-06] MEDS ORDERED: CYCL-920 PO (20:05)
[2025-04-06] MEDS ORDERED: DULO30CA52 PO (20:05)
[2025-04-06 20:26] LABS: LEUKOCYTE ESTERASE ,URINE NEGATIVE (Neg); NITRITES, URINE NEGATIVE (Neg); OCCULT BLOOD,URINE TRACE-INTACT (Neg)
[2025-04-06 20:38] LABS: UA COLLECTION TYPE CLN CATCH MIDSTREAM
[2025-04-06 20:39] LABS: SQUAMOUS EPITHELIAL CELL,UR MODERATE /LPF (FEW)
[2025-04-06] MEDS: lactobacillus rhamnosus 10,000 MMU CELLS/CAPSULE PO SCH (22:34)
[2025-04-06] MEDS: metroNIDAZOLE-Flagyl 250mg/NS 50 ML IV SCH (22:34)
[2025-04-06] MEDS: heparin, porcine 5000 units/ml vial SQ SCH (22:35)
[2025-04-06] MEDS: ciprofloxacin/D5W 200mg/100mL 100 ML IV SCH (23:09)
[2025-04-07] VITALS (8 sets, daily range): BP systolic 104–154; BP diastolic 56–85; PULSE 57–90; RESP 9–17; TEMP 97.4–98.1; O2SAT 95–100
--- NOTE | 2025-04-07 05:45 | CARDIOLOGY REPORT ---
APPROVED REPORT EXAM: Comprehensive 2D, Doppler, and color-flow Echocardiogram. Patient Location: ER RM 6 Blood Pressure: 149/72 mmHg Heart Rate: 68 bpm Indications Hypertension COPD Murmur (per patient) CABLE TENDER: Jen Lee MD Previous ECHO Unavailable 2D Dimensions LA Diam 3.2 cm IVSd 0.9 (0.7-1.1cm) LVDd 3.8 cm PWd 0.7 (0.7-1.1cm) IVSs 1.2 (0.8-1.2cm) LVDs 2.3 (2.5-4.0cm) PWs 1.2 (0.8-1.2cm) LVOT Diameter 2.22 (1.8-2.4cm) LVEF(%) 72.4 (>50%) IVC 14.26 mm FS (%) 40.8 % SV 45.1 ml CO 8.0 L/min M-Mode Dimensions Left Atrium(MM) 4.67 (2.5-4.0cm) Aortic Root 2.88 (2.2-3.7cm) Aortic Cusp Exc 0.91 (1.5-2.0cm) MV EPSS 1.1 (<0.5cm) Aortic Valve AoV Peak Lloyd. 280.9 cm/s AoV VTI 48.8 cm AO Peak GR. 31.6 mmHg AO Mean GR. 18 mmHg LVOT VTI 19.63 cm LVOT Peak Lloyd. 93.9 cm/s LANCE(VTI)/BSA 1.56 cm2/m2 LANCE (VTI) 1.56 cm2 AI P 1/2 Time 856 ms AV DI 0.40 % Mitral Valve MV E Velocity 49.7 cm/s MV Peak Gr. 1 mmHg MV DECEL TIME 248 ms MV A Velocity 111.5 cm/s MV PHT 84 ms E/A Ratio 0.4 MVA (PHT) 2.62 cm2 MV VMax 57.3 cm/s TDI Lateral E' P. V 9.30 cm/s E/Lateral E' 5.3 Tricuspid Valve TR P. Velocity 255 cm/s RAP ESTIMATE 10 mmHg TR Peak Gr. 26 mmHg RVSP 36 mmHg LEFT VENTRICLE Normal LV size and wall thickness. Overall systolic function is normal. LVEF is 65-70%. RIGHT VENTRICLE RV is normal size and function. Elevated right heart pressures with an RVSP of 36 mmHg. ATRIA The left atrium size is normal. AORTIC VALVE Trileaflet AV is mildly stenotic. LANCE is measured at 1.56 cmsq. Peak / mean gradients of 32 / 18 mmHG. Peak velocity is measured at 2.80 m/sec. Trace insufficiency. MITRAL VALVE Mitral valve leaflets are thickened with moderate annular calcification. Mild regurgitation. TRICUSPID VALVE The tricuspid valve is normal in structure with mild to moderate regurgitation. PULMONIC VALVE Pulmonic valve is grossly normal in structure with physiologic insufficiency. GREAT VESSELS The aortic root is normal in size. The ascending aorta is normal in size. IVC is normal in size. PERICARDIUM Normal pericardium. No effusion. Other Information Study Quality: Adequate Conclusion Normal LV size and wall thickness. Overall systolic function is normal. LVEF is 65-70%. RV is normal size and function. Elevated right heart pressures with an RVSP of 36 mmHg. The left atrium size is normal. Trileaflet AV is mildly stenotic. LANCE is measured at 1.56 cmsq. Peak / mean gradients of 32 / 18 mmHG. Peak velocity is measured at 2.80 m/sec. Trace insufficiency. Mitral valve leaflets are thickened with moderate annular calcification. Mild regurgitation. The tricuspid valve is normal in structure with mild to moderate regurgitation. Normal pericardium. No effusion.
[2025-04-07 06:46] LABS: MEAN PLATELET VOLUME 7.1 FL (7.4-10.4); RED CELL DISTRIBUTION WIDTH 19.3 % (11.5-14.5)
[2025-04-07 07:08] LABS: CREATININE 0.54 MG/DL (0.40-0.90); TOTAL CARBON DIOXIDE 31.6 MMOL/L (24-32); eCRCL 67 ML/MIN; eGFR > 90 ML/MIN
[2025-04-07 07:09] LABS: CHOL/HDL RATIO 2.5 (0.00-4.99); LDL CHOLESTEROL 41 MG/DL (50-100)
[2025-04-07] MEDS: potassium Cl 20 mEq SR tablet PO PRN (09:40)
[2025-04-07] MEDS ORDERED: FERR325T28 PO (10:19)
[2025-04-07] MEDS ORDERED: ALB0.5UD NEB (10:20)
[2025-04-07] MEDS: HYDROcodone/acetaminophen 5mg/325mg tablet PO PRN (10:39)
[2025-04-07] MEDS ORDERED: albuterol 2.5 MG/3 ML nebule NEB PRN (16:00)
[2025-04-07] MEDS: HYDROcodone/acetaminophen 10/325mg tab PO PRN (16:02)
--- NOTE | 2025-04-07 16:24 | PROGRESS NOTE- Residence ---
Progress Note - Resident Providers to CC Resident Creating Document: KIANAN BUTTS RES CC: BALTA ALAS DO ~ Antibiotic Timeout Antibiotic Ordered?: Yes Subjective Patient was seen and examined bedside; she denied any abdominal pain today and denied any loose stools. No other acute overnight symptoms noted Objective Vital Signs Date Time Temp Pulse Resp B/P (MAP) Pulse Ox O2 Delivery O2 Flow Rate FiO2 04/07/25 15:00 98.1 90 10 142/85 (104) 99 Room Air 04/06/25 10:51 0 Result Diagram: 04/07/25 0549 04/07/2549 General: Awake, oriented to person, place and time; extremely pale and extremely malnourished woman HEENT: Conjunctive are aple, sclerae clear, no icterus, pupil is equal in both sides, reactive to light, no ear discharge, no pharyngeal erythema or an edema. Neck: Supple, no JVD, no lymphadenopathy and thyromegaly. Chest: Equal air entry on both lungs, no additional sounds no rhonchi no wheezing at the moment. Cardiovascular: S1-S2 regular sounds heard but overshadowed by the ejection systolic murmur sinus rhythm; ejection systolic murmur grade 3/6 heard all over the precordium Abdomen: No visible peristalsis, Bowel sounds present on auscultation, soft, no tenderness noted, no guarding, no rigidity; abdominal scar present post hysterectomy Extremities: No obvious deformities, 1+ pitting edema bilaterally, capillary refill intact, peripheral pulsations are intact on both sides Central Nervous System: No focal neurological deficits, no motor or sensory weakness in all 4 extremities, could move all 4 extremities, 2+ deep tendon reflexes, negative Babinski. Musculoskeletal: No joint swelling, deformities, inflammations, and no scoliosis and back tenderness Skin: Warm and dry. Dry oral mucosa. Psychiatric: Mood and thoughts appropriate Coagulation Studies Laboratory Tests Test 04/06/25 18:20 Prothrombin Time 11.9 SECONDS (9.0-12.0) INR International Normalized Ratio 1.2 INR Activated Partial Thromboplast Time 27 SECONDS (22-32) Coagulation Comments Advance Care Planning Advanced Care plannin - 30 Minutes Assessment Assessment This is a 80-year-old female patient with past medical history of hypertension, hypothyroidism, hyperlipidemia with a controlled pain control stimulator placed intradermally in her back, patient presented to the ED with complaints of abdominal pain Plan Plan Intractable abdominal pain 2/2 gastroenteritis possibly bacterial cause Presents of intractable right lower quadrant; 3-5 episodes of diarrhea Normal WBC count, procalcitonin normal CT abdomen reported Diffuse colonic mucosal hyperemia, wall edema/thickening Patient received 1 L bolus of normal saline in the ER; received one dose of Zosyn Plan Continue normal saline 75 mL/hour C diff toxin stool culture, fecal fat pending continue antibiotics metronidazole IV and ciprofloxacin IV q.12h Intractable low chronic back pain H/o degenerative osteoarthritis changes Patient has a pain controlled stimulator intradermally Pain meds Dilaudid 0.5 mg IV q.4h p.r.n.; morphine 4 mg q.4h p.r.n.; [place] 5 mg q.4h p.r.n. Hypertension History of hypertension Discontinued amlodipine; initiated patient's home medication losartan Echocardiogram reported Normal LV size and wall thickness. Overall systolic function is normal. LVEF is 65-70%. Hypothyroidism Patient's TSH is at 5.95 Patient's home medication levothyroxine was increased from 25 to 50 mcg last month Continue levothyroxine 50 mcg We recommend patient check her TSH in four weeks Severe hepatic steatosis CT abdomen showed severe hepatic steatosis Liver function tests are unremarkable Severe malnutrition Patient has a BMI of 18.3 Ordered ensure enlive t.i.d. Nutrition consult in place Code Status: Full code DVT Prophylaxis: Heparin Lines/Tubes: PIV Nutrition: 2g sodium restricted diet PT: yes Prognosis: Guarded Disposition: We will continue to monitor the patient; awaiting C diff toxin pending tests Kianna Butts MD Internal medicine resident,[id number] Date of Service: Apr 07, 2025 Billing Provider: BALTA ALAS DO Common Visit Codes: [id number] INP/OBS CARE(HIGH) KIANNA BUTTS, RES Apr 07, 2025 16:24 BALTA ALAS DO Apr 07, 2025 17:17
[2025-04-07] MEDS ORDERED: LEVO50TA8 PO (16:40)
[2025-04-07] MEDS: MULTIVIT-MIN/FERROUS GLUCONATE 9 MG/15 ML LIQUID PO SCH (18:20)
[2025-04-07] MEDS: calcium carbonate 500mg tablet PO SCH (20:13)
[2025-04-07] MEDS: cyanocobalamin 500mcg tablet PO SCH (20:13)
[2025-04-08 02:00] VITALS: BP 143/75; PULSE 76; RESP 13; TEMP 97.7; O2SAT 98
[2025-04-08 06:00] VITALS: BP 148/85; PULSE 82; RESP 17; TEMP 98.1; O2SAT 98
[2025-04-08 06:47] LABS: MEAN PLATELET VOLUME 6.9 FL (7.4-10.4); RED CELL DISTRIBUTION WIDTH 19.3 % (11.5-14.5)
[2025-04-08 07:09] LABS: CREATININE 0.74 MG/DL (0.40-0.90); TOTAL CARBON DIOXIDE 30.8 MMOL/L (24-32); eCRCL 49 ML/MIN; eGFR 75 ML/MIN
[2025-04-08] MEDS: duloxetine 30mg CAPSULE.DR PO SCH (07:38)
[2025-04-08] MEDS ORDERED: MULT-25 PO (10:04)
[2025-04-08] MEDS ORDERED: CIPR-259 PO (10:04)
[2025-04-08] MEDS ORDERED: METR-159 PO (10:04)
[2025-04-08] MEDS ORDERED: LACT1CAP26 PO (10:04)
[2025-04-08] MEDS ORDERED: CYAN-104 PO (10:04)
[2025-04-08 11:00] VITALS: BP 137/69; PULSE 93; RESP 10; TEMP 99.4; O2SAT 98
--- NOTE | 2025-04-08 11:28 | DISCHARGE SUMMARY-Residence ---
Discharge Summary Providers to CC Resident Creating Document: KIANNA BUTTS, JAYDEN CC: BALTA ALAS DO ~ Discharge Summary Admission Diagnosis: Intractable abdominal pain Hospital Course DATE OF ADMISSION: 04/06/2025 DATE OF DISCHARGE: 04/08/2025 Discharge Diagnosis\Comment: Intractable abdominal pain 2/2 gastroenteritis possibly bacterial cause Intractable low chronic back pain, possibly due to degenerative osteoarthritis Hypertension Hypothyroidism Severe hepatic steatosis Severe malnutrition Operations\Procedures: NONE Consultants: NONE Complications: NONE Condition on DC: Stable New Medications: Ciprofloxacin HCl (Cipro) 500 Mg Tablet 1 TAB PO Q12H for 3 Days, #6 TAB Cyanocobalamin (Vitamin B-12) 1,000 Mcg Tablet 1 TAB PO DAILY for 30 Days, #30 TAB 0 Refills Lactobacillus Rhamnosus (Culturelle) 10 Billion Cell Capsule 1 CAP PO BID for 30 Days, #60 CAP 0 Refills Metronidazole* (Flagyl*) 500 Mg Tablet 1 TAB PO Q12H for 3 Days, #6 TAB Multivitamin with Folic Acid (Thera Tablet) 400 Mcg Tablet 1 TAB PO DAILY for 30 Days, #30 TAB 0 Refills Continued Medications: Albuterol Sulfate Nebs* (Proventil Nebs*) 2.5 Mg/0.5 Ml Vial.neb 1 VIAL NEB Q4H for shortness of breath for 10 Days, #30 ML Cyclobenzaprine HCl (Cyclobenzaprine HCl) 5 Mg Tablet 1 TAB PO HS PRN for pain Duloxetine HCl (Duloxetine HCl) 30 Mg Capsule.dr 1 CAP PO DAILY Estradiol (Estradiol) 0.5 Mg Tablet Ferrous Sulfate* (Ferrous Sulfate*) 325 Mg Tablet 1 TAB PO DAILY, TAB [hydroco] () Hydrocodone Bit/Acetaminophen (Hydrocodon-Acetaminophn 10-325 tablet) 10mg- 325mg Tablet 1 TAB PO QID PRN for pain Levothyroxine Sodium (Levothyroxine Sodium) 50 Mcg Tablet 1 TAB PO QAM Olmesartan Medoxomil (Olmesartan Medoxomil) 5 Mg Tablet 1 TAB PO DAILY Trazodone HCl (Trazodone HCl) 100 Mg Tablet 2 TAB PO HS PRN for sleep Discharge Summary: HPI PER ADMITTING PHYSICIAN This is a 80-year-old female patient with past medical history of hypertension, hypothyroidism, hyperlipidemia with a controlled pain control stimulator placed intradermally in her back, patient presented to the ED with complaints of abdominal pain located right lower quadrant and radiating to right hypogastric region as well; patient rated the pain a 7-8/10. She described the pain as squ eezing type of pain which decreases slightly positional changes. Patient also complained of 3-5 episodes of loose watery stools for the last two days. Patient says that she had one episode of fever but did not record her temperature. 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 Patient's primary care doctor [facility] [employer] Pablo Patient lives with her in her house Normally ambulates on her own and uses a cane occasionally when she has to walk long distances Hospital course: This is a 80-year-old female patient with past medical history of hypertension, hypothyroidism, hyperlipidemia with a controlled pain control stimulator placed intradermally in her back, patient presented to the ED with complaints of abdominal pain located right lower quadrant and radiating to right hypogastric region as well; patient rated the pain a 7-8/10. She described the pain as squeezing type of pain which decreases slightly positional changes. Patient also complained of 3-5 episodes of loose watery stools for the last two days. Patient appeared dehydrated and was given 1 L bolus saline in the ER and we continued with the patient with normal saline 75 mL/hour; CT abdomen was done which reported diffuse colonic mucosal hyperemia however patient's WBC procal was in the normal range; initiated the patient with antibiotics metronidazole IV and ciprofloxacin IV. And ordered C diff toxin stool culture which is still pending at the time of discharge. Patient has a history of intractable low chronic back pain due to history of degenerative osteoarthritis patient has a pain control stimulator intradermally; we manage patient's pain during this stay with Dilaudid morphine and [place] p.r.n. Patient has a history of hypertension; record echocardiogram done which showed normal LV size and wall thickness with EF of 65-70%, initially started the patient on amlodipine as her med rec was pending but we continued patient's home medication losartan once was med rec was done. Patient has history of hypothyroidism her TSH was elevated at 5.95; marcelo valdes recently had a change in her levothyroxine medication from 25-50 mcg last month so we did not make any alterations at this point and recommended the patient check her TSH in four weeks. Patient's CT abdomen showed severe hepatic steatosis however her liver function tests were unremarkable. Patient has a BMI of 18.3 and hop farmer consult was in place patient received ensure Enlive t.i.d. and vitamin supplementations. Patient recovered earlier than expected and is able to go home at this point. Physical examination the time of discharge General: Awake, oriented to person, place and time; extremely pale and extremely malnourished woman HEENT: Conjunctive are aple, sclerae clear, no icterus, pupil is equal in both sides, reactive to light, no ear discharge, no pharyngeal erythema or an edema. Neck: Supple, no JVD, no lymphadenopathy and thyromegaly. Chest: Equal air entry on both lungs, no additional sounds no rhonchi no wheezing at the moment. Cardiovascular: S1-S2 regular sounds heard but overshadowed by the ejection systolic murmur sinus rhythm; ejection systolic murmur grade 3/6 heard all over the precordium Abdomen: No visible peristalsis, Bowel sounds present on auscultation, soft, no tenderness noted, no guarding, no rigidity; abdominal scar present post hysterectomy Extremities: No obvious deformities, 1+ pitting edema bilaterally, capillary refill intact, peripheral pulsations are intact on both sides Central Nervous System: No focal neurological deficits, no motor or sensory weakness in all 4 extremities, could move all 4 extremities, 2+ deep tendon reflexes, negative Babinski. Musculoskeletal: No joint swelling, deformities, inflammations, and no scoliosis and back tenderness Skin: Warm and dry. Dry oral mucosa. Psychiatric: Mood and thoughts appropriate Significant imaging Abdominal CT 04/06/2025 Diffuse colonic mucosal hyperemia, wall edema / thickening. Correlate for colitis, inflammatory bowel disease. Anasarca/ soft tissue edema. Diffuse mesenteric edema. Small amount of ascites fluid. Severe hepatic steatosis. Atherosclerotic disease. Postsurgical changes stomach. Hiatal hernia. Echocardiogram 04/06/2025 Normal LV size and wall thickness. Overall systolic function is normal. LVEF is 65-70%. RV is normal size and function. Elevated right heart pressures with an RVSP of 36 mmHg. The left atrium size is normal. Trileaflet AV is mildly stenotic. LANCE is measured at 1.56 cmsq. Peak / mean gradients of 32 / 18 mmHG. Peak velocity is measured at 2.80 m/sec. Trace insufficiency. Mitral valve leaflets are thickened with moderate annular calcification. Mild regurgitation. The tricuspid valve is normal in structure with mild to moderate regurgitation. Normal pericardium. No effusion. Vital Signs Date Time Temp Pulse Resp B/P (MAP) Pulse Ox O2 Delivery O2 Flow Rate FiO2 04/08/25 09:58 16 04/08/25 08:05 Room Air 04/08/25 07:43 82 04/08/25 06:00 98.1 148/85 (106) 98 04/06/25 10:51 0 Laboratory Tests Test 04/06/25 11:56 04/06/25 14:12 04/06/25 18:20 04/06/25 20:17 White Blood Count 6.8 X10'3 Red Blood Count 4.03 X10'6 Hemoglobin 11.1 g/dl Hematocrit 34.5 % Mean Corpuscular Volume 85.6 FL Mean Corpuscular Hemoglobin 27.6 PG Mean Corpuscular Hemoglobin Concent 32.3 g/dL Red Cell Distribution Width 19.6 % Platelet Count 445 X10'3 Mean Platelet Volume 6.9 FL Neutrophils (%) (Auto) 71.7 % Lymphocytes (%) (Auto) 24.0 % Monocytes (%) (Auto) 3.3 % Eosinophils (%) (Auto) 0.4 % Basophils (%) (Auto) 0.6 % Neutrophils # (Auto) 4.9 X10'3 Lymphocytes # (Auto) 1.6 X10'3 Monocytes # (Auto) 0.2 X10'3 Eosinophils # (Auto) 0.0 X10'3 Basophils # (Auto) 0.0 X10'3 CBC Comment Platelet Estimate Increased Red Blood Cell Morphology Perf Basophilic Stippling Anisocytosis 2+ [place] Cells Few Acanthocytes Few Sodium Level 142 MMOL/L Potassium Level 3.4 MMOL/L Chloride Level 105 MMOL/L Carbon Dioxide Level 30.9 MMOL/L Anion Gap 6 Blood Urea Nitrogen 16 MG/DL Creatinine 0.81 MG/DL Estimated GFR/1.73 m2 68 ML/MIN BUN/Creatinine Ratio 19.8 Glucose Level 106 MG/DL Calcium Level 8.1 MG/DL Troponin I High Sensitivity 14 ng/L 16 ng/L 17 ng/L Albumin 2.4 G/DL Procalcitonin 0.06 NG/ML Chemistry Comments Troponin I High Sens Percent Delta 14 % 6 % Troponin I Hi Sens Absolute Change 2 ng/L 1 ng/L Prothrombin Time 11.9 SECONDS INR International Normalized Ratio 1.2 INR Activated Partial Thromboplast Time 27 SECONDS Coagulation Comments Hemoglobin A1c 5.2 % Phosphorus Level 2.5 MG/DL Magnesium Level 2.1 MG/DL Pro-B-Type Natriuretic Peptide 828 PG/ML Triglycerides Level 71 MG/DL Cholesterol Level 115 MG/DL LDL Cholesterol 46 MG/DL HDL Cholesterol 49 MG/DL Cholesterol/HDL Ratio 2.3 Urine Specimen Description Cln catch midstream Urine Color Yellow Urine Clarity Clear Urine pH 5.5 Urine Specific Reading 1.010 Urine Protein Negative mg/dl Urine Glucose (UA) Negative mg/dl Urine Ketones Negative mg/dl Urine Occult Blood Trace-intact Urine Nitrite Negative Urine Bilirubin Negative Urine Urobilinogen 0.2 E.U/dL Urine Leukocyte Esterase Negative Urine RBC 0-2 /HPF Urine WBC None seen /HPF Urine Squamous Epithelial Cells Moderate /LPF Urine Bacteria Few /HPF Urine Culture Indicated Not ind Volume Urine Centrifuged 10 ml Urine Comment Test 04/07/25 05:49 04/08/25 06:26 White Blood Count 4.8 X10'3 5.0 X10'3 Red Blood Count 3.52 X10'6 3.44 X10'6 Hemoglobin 9.9 g/dl 9.6 g/dl Hematocrit 29.5 % 29.0 % Mean Corpuscular Volume 83.9 FL 84.3 FL Mean Corpuscular Hemoglobin 28.0 PG 27.9 PG Mean Corpuscular Hemoglobin Concent 33.4 g/dL 33.1 g/dL Red Cell Distribution Width 19.3 % 19.3 % Platelet Count 359 X10'3 368 X10'3 Mean Platelet Volume 7.1 FL 6.9 FL Neutrophils (%) (Auto) 63.6 % 53.1 % Lymphocytes (%) (Auto) 30.4 % 40.9 % Monocytes (%) (Auto) 4.1 % 4.4 % Eosinophils (%) (Auto) 1.3 % 1.1 % Basophils (%) (Auto) 0.6 % 0.5 % Neutrophils # (Auto) 3.0 X10'3 2.6 X10'3 Lymphocytes # (Auto) 1.5 X10'3 2.0 X10'3 Monocytes # (Auto) 0.2 X10'3 0.2 X10'3 Eosinophils # (Auto) 0.1 X10'3 0.1 X10'3 Basophils # (Auto) 0.0 X10'3 0.0 X10'3 CBC Comment Sodium Level 142 MMOL/L 143 MMOL/L Potassium Level 3.3 MMOL/L 3.8 MMOL/L Chloride Level 106 MMOL/L 108 MMOL/L Carbon Dioxide Level 31.6 MMOL/L 30.8 MMOL/L Anion Gap 4 4 Blood Urea Nitrogen 12 MG/DL 10 MG/DL Creatinine 0.54 MG/DL 0.74 MG/DL Estimated GFR/1.73 m2 > 90 ML/MIN 75 ML/MIN BUN/Creatinine Ratio 22.2 13.5 Glucose Level 77 MG/DL 82 MG/DL Calcium Level 7.4 MG/DL 7.5 MG/DL Magnesium Level 1.9 MG/DL 2.0 MG/DL Total Bilirubin 0.3 MG/DL 0.3 MG/DL Aspartate Amino Transf (AST/SGOT) 20 U/L 27 U/L Alanine Aminotransferase (ALT/SGPT) 24 U/L 21 U/L Alkaline Phosphatase 149 IU/L 137 IU/L Troponin I High Sensitivity 17 ng/L Troponin I High Sens Percent Delta 0 % Troponin I Hi Sens Absolute Change 0 ng/L Total Protein 4.6 G/DL 4.7 G/DL Albumin 1.9 G/DL 1.9 G/DL Globulin 2.7 G/DL 2.8 G/DL Albumin/Globulin Ratio 0.7 0.7 Triglycerides Level 62 MG/DL Cholesterol Level 101 MG/DL LDL Cholesterol 41 MG/DL HDL Cholesterol 40 MG/DL Cholesterol/HDL Ratio 2.5 Amylase Level 33 U/L Lipase 22 U/L Thyroid Stimulating Hormone (TSH) 5.95 ulU/ml Chemistry Comments Discharge instructions Followup with pcp in 3-5 days with cbc,cmp continue taking ciprofloxacin 500mg po bid for 3 days & metronidazole 500mg po bid for 3 days. continue culturulle 1 capsule po bid for 1 month. read adverse effects for prescribed medications. Please note that your TSH is elevated, recheck your TSH level in four weeks and talk with your primary care doctor about it call 911 or visit ER if emeregency. Discharge medications New Medications: Ciprofloxacin HCl (Cipro) 500 Mg Tablet Cyanocobalamin (Vitamin B-12) 1,000 Mcg Tablet Lactobacillus Rhamnosus (Culturelle) 10 Billion Cell Capsule Metronidazole* (Flagyl*) 500 Mg Tablet Multivitamin with Folic Acid (Thera Tablet) 400 Mcg Tablet Continued Medications: Albuterol Sulfate Nebs* (Proventil Nebs*) 2.5 Mg/0.5 Ml Vial.neb Cyclobenzaprine HCl 5 Mg Tablet Duloxetine HCl 30 Mg Capsule.dr Estradiol 0.5 Mg Tablet Ferrous Sulfate* 325 Mg Tablet [hydroco] Hydrocodone Bit/Acetaminophen (Hydrocodon-Acetaminophn 10-325 tablet) 10mg-325mg Tablet Levothyroxine Sodium 50 Mcg Tablet Olmesartan Medoxomil 5 Mg Tablet Trazodone HCl 100 Mg Tablet The patient felt ready to be discharged and was medically cleared to be discharged on 04/08/2025 The patient was seen and evaluated on day of discharge. Time spent on discharge 35 minutes *Problems/Diagnosis: (1) Back pain Status: Acute (2) Colitis Status: Acute (3) Abdominal pain Status: Acute Total Time Spent on D/C: > 30 Minutes Date of Service: Apr 08, 2025 Billing Provider: BALTA ALAS DO Problem Qualifiers (1) Abdominal pain: Abdominal location: generalized Qualified Codes: R10.84 - Generalized abdominal pain KIANNA BUTTS, RES Apr 08, 2025 11:22 BALTA ALAS DO Apr 08, 2025 13:58
== END 2025-04-08 12:22 | disposition home or self-care (01) | DRG 371 ==
LOC: ER 10:40 → ED HOLD 16:30 → EDBEDREQ 04-07 03:48 → PCU 3S 04-07 04:45
PROVIDERS: ADMIT Family Medicine; ATTEND Family Medicine
PROC: BW211ZZ Computerized Tomography (CT Scan) of Abdomen and Pelvis using Low Osmolar Contrast (ICD-10-PCS; principal; 2025-04-06)
DX: A04.9 Bacterial intestinal infection, unspecified (principal); E43 Unspecified severe protein-calorie malnutrition; Z68.1 Body mass index [BMI] 19.9 or less, adult; G89.29 Other chronic pain; M54.9 Dorsalgia, unspecified; I10 Essential (primary) hypertension; J44.9 Chronic obstructive pulmonary disease, unspecified; E03.9 Hypothyroidism, unspecified; E78.5 Hyperlipidemia, unspecified; F17.210 Nicotine dependence, cigarettes, uncomplicated; K76.0 Fatty (change of) liver, not elsewhere classified; Z79.899 Other long term (current) drug therapy; Z90.710 Acquired absence of both cervix and uterus; Z90.49 Acquired absence of other specified parts of digestive tract; Z98.84 Bariatric surgery status; M47.819 Spondylosis without myelopathy or radiculopathy, site unspecified
CPT/HCPCS: 36415; 71045; 74177; 80048; 80053; 80061; 81001; 82150; 83036; 83690; 83735; 83880; 84100; 84145; 84443; 84484; 85008; 85025; 85610; 85730; 87081; 93005; 93306; 96365; 99285; G0378; J0744; J1171; J1644; J2470; J2543; J3490; J7030; Q9967

== ENCOUNTER 2025-05-11 14:41 | Emergency (ER) | payer MEDICARE, OTHER ==
[~2025-05-11] VITALS: Ht 172.7 cm; Wt 49.7 kg
[~2025-05-11 14:41] MED LIST changes: +ALB0.5UD NEB; +CIPR-259 PO; +CYAN-104 PO; +CYCL-920 PO; +DULO30CA52 PO; +ESTR0.5T28; +FERR325T28 PO; +HYDR-3972 PO; +LACT1CAP26 PO; +LEVO50TA8 PO; +METR-159 PO; +MULT-25 PO; +OLME5TAB29 PO; +TRAZ-256 PO
--- NOTE | 2025-05-11 15:04 | ELECTROCARDIOGRAPH REPORT ---
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 YVETTE Wall Measurements Intervals [place] Rate: 78 P: 73 AR: 177 QRS: 65 QRSD: 56 T: 45 QT: 511 QTc: 583 Interpretive Statements Sinus rhythm Nonspecific T abnormalities, lateral leads Prolonged QT interval Electronically Signed On 05-13-2025 15:16:[address] YVETTE Wall Please click the below link to view image of tracing.
[2025-05-11 15:07] LABS: MEAN PLATELET VOLUME 7.3 FL (7.4-10.4); RED CELL DISTRIBUTION WIDTH 18.3 % (11.5-14.5)
--- NOTE | 2025-05-11 15:24 | RADIOLOGY REPORT ---
CHEST RADIOGRAPH Indication: CP Technique: Single frontal view of the chest was obtained Comparison: DI CHEST,SINGLE VIEW on DOS: 04/06/25, CHEST,SINGLE VIEW on DOS: 01/18/23, CHEST,SINGLE VIEW on DOS: 01/10/23 FINDINGS: Lines and Tubes: None Lungs: No focal consolidation. Minimal blunting of the right costophrenic angle. Hyperinflation of the lungs. elevated right hemidiaphragm. No pneumothorax. Cardiomediastinal contours: Unremarkable Bones: No acute osseous abnormality. Spinal stimulator wires are noted overlying the midline midthorax. IMPRESSION: Trace right-sided pleural effusion /atelectasis. Hyperinflation of the lungs.
[2025-05-11 15:37] LABS: CREATININE 0.75 MG/DL (0.40-0.90); PRO BRAIN NATRIURETIC PEPTIDE 599 PG/ML (0-450); TOTAL CARBON DIOXIDE 26.9 MMOL/L (24-32); eCRCL 45 ML/MIN; eGFR 74 ML/MIN
--- NOTE | 2025-05-11 16:20 | Physician Documentation ---
History of Present Illness ~ Chief Complaint: Shortness of Breath Stated Complaint: SOB WEIGHT LOSS Time Seen by MD: 15:26 OK to notify your PCP?: Yes Primary Medical Doctor: Delano; cardio: Rosa Source: patient Mode of Arrival: POV, Ambulatory Exam Limitations: no limitations HPI 80 year old female who is here due to exertional shortness of breath but she states this has been ongoing for quite some time in his unchanged in severity. She states she was seeing her primary care provider today who was concerned due to her coloring and her reports of weight loss. Patient states that she would not have come here otherwise but her primary care provider insisted that she com e here for evaluation. She has seen her radiation oncology manager over the past month, Dr. Lee, and states that he is monitoring her for a leaky valve. She does have short-term memory loss and her helps with providing a lot of the history. Patient has been losing weight but states that she has a good appetite but that she just only feels like eating yogurt. She denies nausea, pain after eating, difficulty swallowing, Medication Reconciliation Allergies: Coded Allergies: No Known Allergies (Unverified , 05/11/25) Scheduled Albuterol Sulfate Nebs* (Proventil Nebs*), 1 VIAL NEB Q4H, (Reported) Ciprofloxacin HCl (Cipro), 1 TAB PO Q12H Cyanocobalamin (Vitamin B-12), 1 TAB PO DAILY Duloxetine HCl (Duloxetine HCl), 1 CAP PO DAILY, (Reported) Ferrous Sulfate* (Ferrous Sulfate*), 1 TAB PO DAILY, (Reported) Lactobacillus Rhamnosus (Culturelle), 1 CAP PO BID Levothyroxine Sodium (Levothyroxine Sodium), 1 TAB PO QAM, (Reported) Metronidazole* (Flagyl*), 1 TAB PO Q12H Multivitamin with Folic Acid (Thera Tablet), 1 TAB PO DAILY Olmesartan Medoxomil (Olmesartan Medoxomil), 1 TAB PO DAILY, (Reported) Scheduled PRN Cyclobenzaprine HCl (Cyclobenzaprine HCl), 1 TAB PO HS PRN for pain, (Reported) Hydrocodone Bit/Acetaminophen (Hydrocodon-Acetaminophn 10-325 tablet), 1 TAB PO QID PRN for pain, (Reported) Trazodone HCl (Trazodone HCl), 2 TAB PO HS PRN for sleep, (Reported) Miscellaneous Medications Estradiol (Estradiol), (Reported) [hydroco] Past Medical History Past Medical History: Hypertension, COPD, Anemia, Chronic Pain, Chronic Back Pain Past Surgical History: noncontributory Alcohol Use: None Drug Use: none Lives with: Spouse Lives In: Home Occupation: retired Review of Systems All Other Systems at this time: Reviewed and Negative Physical Exam Vital Signs: Temperature: 97.6, Source: Temporal, Heart Rate: 64, Respiratory Rate: 13, BP: 158/87, Pulse Oximetry: 97, Weight: 49.700 Oxygen Flow Rate: 0 Physical Exam GENERAL: Alert, no acute distress. HEENT: NCAT, EOMI, PERRL, normal oropharynx, moist oral mucosa. NECK: Supple, trachea midline. CARDIAC: Regular rate and rhythm, no murmurs, rubs, or gallops. PV: Equal distal pulses. No lower extremity edema, cap refill less than 2 seconds. RESPIRATORY: Equal breath sounds, clear to auscultation bilaterally, no respiratory distress. GASTROINTESTINAL: Non distended, soft, nontender, No guarding or rebound. MUSCULOSKELETAL: Normal range of motion, nontender, no swelling. Normal gait. NEUROLOGICAL: Awake, alert, and oriented x 3. CN 2-12 INTACT SKIN: Warm/dry, no pallor, no rash. PSYCH: Alert and appropriate. Affect congruent with mood. Speech is clear. Good eye contact. Progress Results/Orders Results/Orders Vital Signs 05/11/25 05/11/25 05/11/25 05/11/25 14:46 15:36 15:36 16:33 Temp 97.6 97.6 98.0 Pulse 79 64 75 Resp 16 13 14 12 B/P (MAP) 169/96 158/87 (110) 142/70 Pulse Ox 98 97 98 O2 Flow Rate 0 0 Laboratory Tests Test 05/11/25 14:58 White Blood Count 7.2 Red Blood Count 4.48 Hemoglobin 12.8 Hematocrit 40.0 Mean Corpuscular Volume 89.3 Mean Corpuscular Hemoglobin 28.6 Mean Corpuscular Hemoglobin Concent 32.0 L Red Cell Distribution Width 18.3 H Platelet Count 323 Mean Platelet Volume 7.3 L Neutrophils (%) (Auto) 59.7 Lymphocytes (%) (Auto) 35.4 Monocytes (%) (Auto) 4.3 Eosinophils (%) (Auto) 0.2 Basophils (%) (Auto) 0.4 Neutrophils # (Auto) 4.3 Lymphocytes # (Auto) 2.5 Monocytes # (Auto) 0.3 Eosinophils # (Auto) 0.0 Basophils # (Auto) 0.0 CBC Comment Sodium Level 141 Potassium Level 3.6 Chloride Level 106 Carbon Dioxide Level 26.9 Anion Gap 8 Blood Urea Nitrogen 13 Creatinine 0.75 Estimated GFR/1.73 m2 74 BUN/Creatinine Ratio 17.3 Glucose Level 117 H Calcium Level 8.4 L Troponin I High Sensitivity 12 Pro-B-Type Natriuretic Peptide 599 H Albumin 2.9 L Chemistry Comments Heart Score: Heart Score Response (Comments) Value History Slightly Suspicious 0 EKG Normal 0 Age >65 2 Risk Factors No known risk factors 0 Troponin Normal limit 0 Total 2 Medical Decision Making Additional information obtaine: N/A Findings N/A Heart Score: 2 Differential Dx:Considerations: Include: anxiety, asthma, bronchitis, cardiogenic shock, CHF, COPD, dysrhythmia, hypertension, accelerated, hypertension, essential, hypertension, malignant, hyperventilation, hyponatremia, myocardial infarction, panic attack, pneumonia, pneumonitis, pneumothorax, PSVT, pulmonary embolism, respiratory distress, respiratory failure, sinusitis, upper resp. infection, other Departure Time of Disposition: 16:21 Disposition: 01 HOME / SELF CARE / HOMELESS Impression: Primary Impression: Generalized weakness Additional Impressions: Exertional shortness of breath Weight loss Condition: Stable Discharge Instructions: General Discharge Instructions Additional Instructions: You report the only reason you came to the ER today is because your PCP was concerned; however, you had an echocardiogram last month and a recent visit with your radiation oncology manager and deny any symptoms Your shortness of breath with exertion has been ongoing and is unchanged in severity The right pleural effusion on your chest xray was seen when you where here previously Your BNP was elevated from your previous visit, but improved from the visit prior to this Your albumin level was improved from previous as today it was 2.9 and previously it was 1.9 Referrals: NO PRIMARY CARE PROVIDER (PCP) Education Educated: Patient Educated regarding: diagnosis, treatment, need for follow up Signature Scribe Signature: x Attestation: SHERRY Glover May 11, 2025 16:20
[2025-05-11 16:33] VITALS: BP 142/70; PULSE 75; RESP 12; TEMP 98; O2SAT 98
== END 2025-05-11 16:34 | disposition home or self-care (01) ==
LOC: ER 14:42
DX: R53.1 Weakness (principal); R06.02 Shortness of breath; R63.4 Abnormal weight loss; J44.9 Chronic obstructive pulmonary disease, unspecified; D64.9 Anemia, unspecified; I10 Essential (primary) hypertension; G89.29 Other chronic pain; Z79.899 Other long term (current) drug therapy
CPT/HCPCS: 36415; 71045; 80048; 83880; 84484; 85025; 93005; 99285